=== PATIENT | female | born 1955 | race Caucasian/White ===

== ENCOUNTER 2017-08-15 17:49 | Emergency (ER) | payer BC ==
[~2017-08-15] VITALS: Ht 160 cm; Wt 63.5 kg
[2017-08-15 17:58] VITALS: BP_SYST 135
--- NOTE | 2017-08-15 18:06 | NUR ---
Patient to ER bed 07 to gown for evaluation. Side rails up. Report given to
--- NOTE | 2017-08-15 18:10 | NUR ---
Patient to ER via triage with c/o groin pain, that radiates to her left abdomen, and back. Patient is awake, alert and oriented, vital signs stable, respirations even and unlabored, skin warm and dry to touch. Patient reports that she took 3 Oxycodone today without relief Awaiting evaluation by ER MD, will continue to observe and assess.
--- NOTE | 2017-08-15 18:20 | NUR ---
Dr Lewis at bedside to evaluate patient.
[2017-08-15] MEDS ORDERED: PROCHLORPERAZINE EDISYLATE 10 MG/2 ML VIAL IVP ONE (18:30)
[2017-08-15] MEDS ORDERED: fentaNYL CITRATE/PF 100 MCG/2 ML AMP IVP ONE ×2 (18:30→19:30)
[2017-08-15 18:39] LABS: BASOPHILS # (AUTO) 0.1 K/uL (0.0-0.2); BASOPHILS % (AUTO) 0.7 % (0.0-2.0); EOSINOPHILS # (AUTO) 0.2 K/uL (0.0-0.4); EOSINOPHILS % (AUTO) 2.3 % (0.0-4.0); HEMATOCRIT 35.1 % (36-48); HEMOGLOBIN 11.8 g/dL (12.0-16.0); LYMPHOCYTES # (AUTO) 1.4 K/uL (1.0-5.5); LYMPHOCYTES % (AUTO) 17.5 % (20.5-51.5); MEAN CORPUSCULAR HEMOGLOBIN 31 pg (27-31); MEAN CORPUSCULAR HGB CONC 34 % (32-36); MEAN CORPUSCULAR VOLUME 93 fL (79.0-98.0); MONOCYTES # (AUTO) 0.6 K/uL (0.0-1.0); MONOCYTES % (AUTO) 6.9 % (1.7-9.3); NEUTROPHILS # (AUTO) 5.8 K/uL (1.8-7.7); NEUTROPHILS % (AUTO) 72.6 % (40.0-70.0); PLATELET COUNT (AUTO) 337 K/uL (130-430); RED BLOOD CELL COUNT(AUTO) 3.79 MIL/uL (4.2-6.2); RED CELL DISTRIBUTION WIDTH 12.1 % (9.0-15.0); WHITE BLOOD COUNT (AUTO) 8.1 K/uL (4.8-10.8)
--- NOTE | 2017-08-15 18:53 | NUR ---
Patient to CT scan via gurney in stable condition
[2017-08-15 19:02] LABS: CALCIUM 9.1 mg/dL (8.4-11.0); CREATININE 1.04 mg/dL (0.55-1.30); POTASSIUM 3.5 mmol/L (3.5-5.1)
--- NOTE | 2017-08-15 19:05 | NUR ---
Patient returned to unit from CT. Accompanied by radiology staff.
[2017-08-15 19:07] LABS: ALBUMIN 3.5 g/dL (3.4-4.8); TOTAL BILIRUBIN 0.3 mg/dL (0.0-1.0)
--- NOTE | 2017-08-15 19:10 | NUR ---
Recieved report from Diogenes GERARDO. Will assume care at this time.
--- NOTE | 2017-08-15 19:31 | NUR ---
ED MD Lewis at bedside for medical evaluation.
[2017-08-15 20:00] VITALS: BP_SYST 131
--- NOTE | 2017-08-15 20:00 | NUR ---
Note undone in EDM - 08/15/17 at 2025 by [email or web address] Patient given written and verbal discharge instructions and verbalizes understanding. ER discussed with patient the results and treatment provided. Patient in stable condition. ID arm band removed. IV catheter removed intact and dressing applied, no active bleeding.No Rx given. Patient educated on pain management and to follow up with PMD. Pain Scale 3/10 tolerable for patient. Opportunity for questions provided and answered. Medication side effect fact sheet provided.
--- NOTE | 2017-08-15 20:00 | NUR ---
Patient given written and verbal discharge instructions and verbalizes understanding. ER MD discussed with patient the results and treatment provided. Patient in stable condition. ID arm band removed. IV catheter removed intact and dressing applied, no active bleeding.No Rx given. Patient educated on pain management and to follow up with PMD. Pain Scale 3/10 tolerable for patient. Opportunity for questions provided and answered. Medication side effect fact sheet provided.
== END 2017-08-15 20:00 | disposition home or self-care (01) ==
LOC: SED 17:49
DX: S39.011A Strain of muscle, fascia and tendon of abdomen, initial encounter (principal); M79.7 Fibromyalgia; Z86.718 Personal history of other venous thrombosis and embolism; Z88.1 Allergy status to other antibiotic agents; Z88.2 Allergy status to sulfonamides; X58.XXXA Exposure to other specified factors, initial encounter; Y93.89 Activity, other specified; Y92.89 Other specified places as the place of occurrence of the external cause; Y99.8 Other external cause status
CPT/HCPCS: 36415; 74176; 80053; 83690; 85025; 96374; 96375; 96376; 99285; J0780; J3010